=== PATIENT | female | born 1995 | race Caucasian/White ===

== ENCOUNTER 2017-08-09 22:58 | Emergency (ER) | payer BC, OTHER ==
[2017-08-10] MEDS ORDERED: Metoclopramide IV* 5 MG/ML 2 ML VIAL IV ONE (01:09)
[2017-08-10] MEDS ORDERED: Morphine INJ* 10 MG/ML 1 ML CARPUJECT IV ONE (01:09)
[2017-08-10] MEDS ORDERED: NS 0.9% 1000 ML* 1,000 ML IV ONE (01:09)
[2017-08-10 01:40] LABS: Hematocrit 37 % (35-47); Hemoglobin 12.5 g/dl (12.0-16.0); Mean Corpuscular HGB Conc 34 g/dl (31-36); Mean Corpuscular Hemoglobin 29 pg (27-31); Mean Corpuscular Volume 84 fL (80-97); Mean Platelet Volume 9 um3 (7.4-10.4); Platelet Count 168 10^3/ul (150-450); Red Blood Count 4.37 10^6/ul (4.0-5.4); Red Cell Distribution Width 14 % (10.5-15); White Blood Count 10.6 10^3/ul (3.5-10.8)
[2017-08-10 01:48] LABS: INR 1.01 (0.77-1.02)
[2017-08-10 01:59] LABS: EGFR Non-African American 100.1 (>60)
[2017-08-10] MEDS ORDERED: Iohexol 300* (CONTRAST) 10 ML SDV IV ONE (02:03)
[2017-08-10 02:14] LABS: ABS Basophils 0 10^3/ul (0-0.2); ABS Eosinophils 0 10^3/ul (0-0.6); ABS Lymphocytes 8.1 10^3/ul (1.0-4.8); ABS Monocytes 0.7 10^3/ul (0-0.8); ABS Neutrophils 1.7 10^3/ul (1.5-7.7)
[2017-08-10 02:15] LABS: ABS Nucleated RBC 0 10^3/ul; Eosinophil % 0.1 % (0-6); Lymphocyte % 76.3 % (25-47); Nucleated Red Blood Cells % 0.3
[2017-08-10 03:11] LABS: Urine Appearance Clear; Urine Blood Negative (Negative); Urine Color Yellow; Urine Ketones Negative (Negative); Urine Protein Negative (Negative); Urine Urobilinogen Positive (Negative)
[2017-08-10] MEDS ORDERED: Bisacodyl SUPP* 10 MG SUPP PR ONE (03:30)
[2017-08-10] MEDS ORDERED: Magnesium CITRATE* 300 ML BTL PO ONE (03:30)
--- NOTE | 2017-08-10 03:54 | ED ---
Gallito Quiñones Thomas, scribed for Elyssa Dominguez MD on 08/10/17 at 0315 . Abdominal Pain/Female - HPI Summary HPI Summary: The patient is a 22 year old female presenting with intermittent left-sided abdominal pain for the last two days. Her last BM was one day ago. She was recently diagnosed with mononucleosis for previous symptoms of body aches, fevers, and chills. She denies cough and sore throat. She has not been playing sports since her mononucleosis diagnosis. - History of Current Complaint Chief Complaint: EDAbdPain Stated Complaint: ABD PAIN Time Seen by Provider: 08/10/17 01:01 Hx Obtained From: Patient Onset/Duration: Lasting Hours, Still Present Severity Currently: Moderate Pain Intensity: 4 Pain Scale Used: 0-10 Numeric Location: Other - left-sided Alleviating Factor(s): Nothing Associated Signs and Symptoms: Negative: Cough, Other: - sore throat Allergies/Adverse Reactions: Allergies Allergy/AdvReac Type Severity Reaction Status Date / Time No Known Allergies Allergy Verified 06/29/16 11:12 PMH/Surg Hx/FS Hx/Imm Hx Endocrine/Hematology History: Denies: Hx Diabetes Cardiovascular History: Denies: Hx Hypertension, Hx Pacemaker/ICD History: Denies: Hx Renal Disease Sensory History: Denies: Hx Hearing Aid Psychiatric History: Denies: Hx Panic Disorder - Surgical History Surgery Procedure, Year, and Place: 11/04 Rt [facility] - [facility] - [facility] Infectious Disease History: No Infectious Disease History: Denies: Traveled Outside the [place] in Last 30 Days - Family History Known Family History: Negative: Other - patient denies relevant FHx - Social History Alcohol Use: None Substance Use Type: Reports: None Smoking Status (MU): Never Smoked Tobacco Review of Systems Negative: Sore Throat Negative: Cough Positive: Abdominal Pain All Other Systems Reviewed And Are Negative: Yes Physical Exam - Summary Physical Exam Summary: VITAL SIGNS: Reviewed. GENERAL: Patient is a well-developed and nourished female who is lying comfortable in the stretcher. Patient is not in any acute respiratory distress. HEAD AND FACE: No signs of trauma. No ecchymosis, hematomas or skull depressions. No sinus tenderness. EYES: PERRLA, EOMI x 2, No injected conjunctiva, no nystagmus. EARS: Hearing grossly intact. Ear canals and tympanic membranes are within normal limits. MOUTH: Oropharynx within normal limits. NECK: Supple, trachea is midline, no adenopathy, no JVD, no carotid bruit, no c- spine tenderness, neck with full ROM. CHEST: Symmetric, no tenderness at palpation LUNGS: Clear to auscultation bilaterally. No wheezing or crackles. CVS: Regular rate and rhythm, S1 and S2 present, no murmurs or gallops appreciated. ABDOMEN: Soft. She has LUQ tenderness. No signs of distention. No rebound no guarding, and no masses palpated. Bowel sounds are normal. EXTREMITIES: FROM in all major joints, no edema, no cyanosis or clubbing. NEURO: Alert and oriented x 3. No acute neurological deficits. Speech is normal and follows commands. SKIN: Dry and warm Triage Information Reviewed: Yes Vital Signs On Initial Exam: Initial Vitals Temp Pulse Resp BP Pulse Ox 99.7 F 106 20 135/87 100 08/09/17 23:04 08/09/17 23:04 08/09/17 23:04 08/09/17 23:04 08/09/17 23:04 Vital Signs Reviewed: Yes Diagnostics - Vital Signs Vital Signs Temp Pulse Resp BP Pulse Ox 08/10/17 01:36 16 08/09/17 23:04 99.7 F 106 20 135/87 100 - Laboratory Lab Results: Lab Results 08/10/17 08/10/17 08/10/17 Range/Units 01:25 01:25 01:25 WBC 10.6 (3.5-10.8) 10^3/ul RBC 4.37 (4.0-5.4) 10^6/ul Hgb 12.5 (12.0-16.0) g/dl Hct 37 (35-47) % MCV 84 (80-97) fL MCH 29 (27-31) pg MCHC 34 (31-36) g/dl RDW 14 (10.5-15) % Plt Count 168 (150-450) 10^3/ul MPV 9 (7.4-10.4) um3 Neut % (Auto) 16.2 L (38-83) % Lymph % (Auto) 76.3 H (25-47) % [place] % (Auto) 7.0 (0-7) % Eos % (Auto) 0.1 (0-6) % Baso % (Auto) 0.4 (0-2) % Absolute Neuts (auto) 1.7 (1.5-7.7) 10^3/ul Absolute Lymphs (auto) 8.1 H (1.0-4.8) 10^3/ul Absolute Monos (auto) 0.7 (0-0.8) 10^3/ul Absolute Eos (auto) 0 (0-0.6) 10^3/ul Absolute Basos (auto) 0 (0-0.2) 10^3/ul Absolute Nucleated RBC 0 10^3/ul Nucleated RBC % 0.3 Hem Pathologist Commnt Pending INR (Anticoag Therapy) 1.01 (0.77-1.02) APTT 30.4 (26.0-36.3) seconds Sodium 136 (133-145) mmol/L Potassium 3.9 (3.5-5.0) mmol/L Chloride 103 (101-111) mmol/L Carbon Dioxide 28 (22-32) mmol/L Anion Gap 5 (2-11) mmol/L BUN 16 (6-24) mg/dL Creatinine 0.74 (0.51-0.95) mg/dL Est GFR ( Amer) 128.7 (>60) Est GFR (Non-Af Amer) 100.1 (>60) BUN/Creatinine Ratio 21.6 H (8-20) Glucose 99 (70-100) mg/dL Calcium 9.3 (8.6-10.3) mg/dL Magnesium 2.2 (1.9-2.7) mg/dL Total Bilirubin 0.60 (0.2-1.0) mg/dL AST 203 H (13-39) U/L ALT 205 H (7-52) U/L Alkaline Phosphatase 188 H (34-104) U/L Total Protein 7.5 (6.4-8.9) g/dL Albumin 3.9 (3.2-5.2) g/dL Globulin 3.6 (2-4) g/dL Albumin/Globulin Ratio 1.1 (1-3) Lipase 20 (11.0-82.0) U/L Beta HCG, Quant < 0.60 mIU/mL Result Diagrams: 08/10/17 01:25 08/10/17 01:25 Lab Statement: Any lab studies that have been ordered have been reviewed, and results considered in the medical decision making process. - CT CT Abd/Pel CT Interpretation: No Acute Changes - Mild nonspecific splenomegaly most likely associated with mononucleosis infection. No evidence of splenic rupture. Mild hepatomegaly. Constipation. Small amount of dependent pelvic fluid may be physiologic or due to infection. Dr. Dominguez has reviewed this report. CT Interpretation Completed By: Radiologist Re-Evaluation - Re-Evaluation First Eval Re-Evaluation Time: 03:36 Comment: Results discussed. Patient will be discharged. Abdominal Pain Fem Course/Dx - Course Course Of Treatment: The patient is a 22 year old female presenting with intermittent left-sided abdominal pain for the last two days. Her last BM was one day ago. She was recently diagnosed with mononucleosis for previous symptoms of body aches, fevers, and chills. CT Abd/Pel shows Mild nonspecific splenomegaly most likely associated with mononucleosis infection. No evidence of splenic rupture. Mild hepatomegaly. Constipation. Small amount of dependent pelvic fluid may be physiologic or due to infection. The patient is diagnosed with constipation, splenomegaly, and mononucleosis. She will follow up with primary care in three days. - Diagnoses Provider Diagnoses: Splenomegaly, Mononucleosis, Constipation Discharge - Sign-Out/Discharge Documenting (check all that apply): Discharge - Discharge Plan Condition: Stable Disposition: HOME Prescriptions: Oxycodone HCl 5 mg PO TID PRN #14 tablet MDD 3 PRN Reason: Pain oxyCODONE/Acetamin 5/325 MG* [Percocet 5/325 TAB*] 1 tab PO Q6H PRN #14 tab MDD 4 PRN Reason: Pain Patient Education Materials: Constipation (ED), Mononucleosis (ED) Referrals: Lucia Noble MD [Primary Care Provider] - 3 Days Additional Instructions: Follow up at [facility] in three days. Return to the emergency department for any new or worsening symptoms. The documentation as recorded by the Gallito johnson Thomas accurately reflects the service I personally performed and the decisions made by Alberto dukes Abdul, MD.
[2017-08-10 04:13] VITALS: BP 119/80
--- NOTE | 2017-08-10 08:02 | RAD ---
CLINICAL HISTORY: Left upper abdominal pain after recent infectious mononucleosis diagnosis COMPARISON: None TECHNIQUE: Contrast enhanced CT examination of the abdomen and pelvis from the lung bases through the initial tuberosities. The patient received 79 mL Omnipaque 300 intravenously prior to imaging.The patient received oral contrast as well prior to imaging. FINDINGS: VISUALIZED LUNG BASES: The visualized lung bases are grossly clear. There is no pleural effusion. ABDOMEN AND PELVIS: The homogenously attenuating spleen measures approximately 11.8 x 5.5 cm in the axial plane and up to 13.7 cm in the cephalocaudal dimension. There is no evidence of fracture or acute bleed. The liver, pancreas and adrenal glands are grossly normal in appearance. The gallbladder is normal. The kidneys are normal in appearance without focal mass, calcification or signs of hydronephrosis. The small and large bowel are not distended. The patient's normal appendix is identified in the right lower quadrant with gas and stool in the lumen measuring 5 mm in diameter. There is no gross retroperitoneal or mesenteric lymphadenopathy. The pelvic viscera is normal in appearance. Trace free fluid in the cul-de-sac is likely physiologic in a woman of this age. The abdominal aorta and iliac arteries are normal in course and diameter. There are no sinister bone lesions. IMPRESSION: Mild splenomegaly without signs of rupture or acute hemorrhage in this otherwise normal CT of the abdomen and pelvis.
== END 2017-08-10 04:08 | disposition home or self-care (01) ==
LOC: ED 22:58
DX: R16.1 Splenomegaly, not elsewhere classified (principal); B27.90 Infectious mononucleosis, unspecified without complication; K59.00 Constipation, unspecified; R10.9 Unspecified abdominal pain
CPT/HCPCS: 36415; 74177; 80053; 81003; 83690; 83735; 84702; 85025; 85060; 85610; 85730; 96374; 96375; 99284; A9270-GY; J2270; J2765; Q9967

== ENCOUNTER 2019-02-26 10:25 | Day surgery (SDC) | payer BC ==
--- NOTE | 2019-02-26 08:55 | HP ---
PREOPERATIVE HISTORY AND PHYSICAL: DATE OF ADMISSION/SURGERY: 02/26/19 ATTENDING SURGEON: Dr. Marcel Colon * (DICTATED BY KAREN RUIZ) PROCEDURE: Left knee arthroscopy with partial meniscectomy, possible synovectomy. CHIEF COMPLAINT: Left knee pain. HISTORY OF PRESENT ILLNESS: Mirian is a 23-year-old female who presented to the clinic for left knee pain for about 2 weeks. She states she was doing gymnastics and landed awkwardly on the mat. It is a medial based pain. She rates it a 6 out of 10 at its worst. She had a lot of swelling after the injury. She denies numbness, tingling, fevers, chills, chest pain, shortness of breath and is doing well otherwise. She has failed conservative measures, therefore agreed to undergo a left knee arthroscopy with partial meniscectomy, possible synovectomy with Dr. Colon on 02/26/19. PAST MEDICAL HISTORY: No active problems at present. PAST SURGICAL HISTORY: Right elbow x2. Patient denies prior complications with anesthesia. MEDICATIONS: 1. Multivitamin. 2. Junel FE 1.5 mg one by mouth daily. ALLERGIES: No known drug allergies. FAMILY HISTORY: Positive for hypertension. SOCIAL HISTORY: She lives with 2 roommates. She works as a student. She denies tobacco use. She reports occasional alcohol consumption. She exercises regularly. She is right hand dominant. REVIEW OF SYSTEMS: A 14-point review of systems was reviewed with the patient. Positive for current complaint, otherwise negative. PHYSICAL EXAMINATION GENERAL: A 23-year-old well-developed, well-nourished female, in no acute distress. VITAL SIGNS: Height 65.5, weight 138, pulse 82, blood pressure 120/64, temperature 99.1, BMI 22.6. HEENT: Normocephalic, atraumatic. PERRL. Throat clear. NECK: Supple. PULMONARY: Lungs are clear to auscultation bilaterally. No wheezing, rhonchi, or rales. CARDIO: Regular rate and rhythm. S1, S2. No murmurs, gallops, or rubs. No edema. ABDOMEN: Positive bowel sounds. Soft, nontender. NEURO: Alert and oriented x3. Cranial nerves grossly intact. MUSCULOSKELETAL: Left lower extremity. Skin is intact. No warmth or erythema. She has tenderness over the medial and lateral joint line. Positive Danii. Stable to varus and valgus stress. Some pain at 0 and 30 degrees with MCL testing that is mild. Stable [place]. Negative posterior drawer. Calf soft nontender. Range of motion 0 to 130. +5/5 strength to ankle dorsiflexion and plantarflexion. +2 DP pulse. Sensation intact to light touch distally. Mild effusion. DIAGNOSTIC STUDIES/LAB DATA: MRI revealed increased fat pad. No obvious meniscus tear. IMPRESSION: Left fat pad impingement and synovitis. PLAN: Patient scheduled to undergo a left knee arthroscopy with partial meniscectomy, possible synovectomy with Dr. Colon on 02/26/19. She will followup 10 to 14 days postop. [place] will be used for postop pain management. KAREN RUIZ [id number]/[facility] #: [id number] SUN[place]
[~2019-02-26 10:25] MED LIST: Buffered Lidocaine 1% SYRIN* 1 ML/SYRINGE INTRADERM ONE; Lactated Ringers 1000 ML Bag* 1,000 ML IV SCH
[2019-02-26] MEDS ORDERED: ceFAZolin 2 GM PREMIX in ORs 2 GM/50 ML BAG ONE (10:56)
[2019-02-26] MEDS ORDERED: fentaNYL* 50 MCG/ML 2 ML VIAL (100 MCG VIAL) ONE (11:09)
[2019-02-26] MEDS ORDERED: Midazolam* 1 MG/ML 2 ML VIAL (2 MG) ONE (11:09)
[2019-02-26] MEDS ORDERED: Propofol* 10 MG/ML 20 ML BTL ONE (11:10)
[2019-02-26] MEDS ORDERED: Lidocaine 2% PF * 5 ML VIAL ONE ×2 (11:11→11:12)
[2019-02-26] MEDS ORDERED: Ropivacaine 0.2% * 2 MG/ML VIAL ONE (11:54)
[2019-02-26] MEDS ORDERED: Lidocaine 1% w EPI 1:200,000* SDV 30 ML VIAL ONE (11:54)
[2019-02-26] MEDS ORDERED: fentaNYL* 50 MCG/ML 2 ML VIAL (100 MCG VIAL) IV PRN (12:29)
[2019-02-26] MEDS ORDERED: Naloxone* 0.4 MG/ML 1 ML VIAL IV PRN (12:29)
[2019-02-26] MEDS ORDERED: DiMENhydriNATE IV* 50 MG/ML VIAL IV PUSH PRN (12:29)
[2019-02-26] MEDS ORDERED: oxyCODONE/Acetamin 5/325 MG* TAB PO PRN (12:29)
[2019-02-26 13:54] VITALS: BP 114/64
--- NOTE | 2019-02-27 01:32 | OP ---
CC: PCP, Lucia Noble MD * DATE OF OPERATION: 02/26/19 [facility] DATE OF : 89 SURGEON: Marcel Colon MD. ONLINE MERCHANDISING SPECIALIST: Not available. ANESTHESIA: General anesthesia endotracheal intubation. PRE-OP DIAGNOSES: Left knee possible medial meniscus tear and pain. POST-OP DIAGNOSES: Left knee medial plica and partial lateral meniscus tearing at the root. OPERATIVE PROCEDURE: Left knee arthroscopy with partial lateral meniscectomy and removal of plica. COMPLICATIONS: None. ESTIMATED BLOOD LOSS: Minimal. INDICATIONS: Mirian is a 23-year-old female who presents with persistent knee pain medially based. She has failed physical therapy, antiinflammatories, ice and heat, and she has elected to proceed with surgical treatment. The risks and benefits were discussed at length and include, but are not limited to bleeding, infection, damage to nerves; vessels; surrounding structures, wound nonhealing, persistent pain, need for further surgery, scarring, stiffness, incomplete relief of symptoms, risks of refracture, and risks of anesthesia. DESCRIPTION OF PROCEDURE: The patient was greeted in the preoperative area by the attending surgeon. The correct extremity was marked and consent was confirmed. The patient was brought back to the operating suite and she was placed in the supine position on the operating table and underwent general anesthesia and endotracheal intubation, after which she was appropriately positioned on the bed. The lateral post was positioned. An unsterile tourniquet was placed high on the proximal thigh. The left leg was then prepped and draped in the usual sterile fashion beginning with chlorhexidine soap, scrub, and alcohol wipe and a final prep with ChloraPrep. After appropriate surgical pause indicating correct side, site, procedure, and administration of antibiotics, the knee was intra-articularly injected with 1% lidocaine with epi. The lateral and anterior portals were made sharply with an 11 blade. The scope was introduced into the joint and it was examined. There was abundant synovitis that was present. The small ligamentum was then removed using a shaver. The patellofemoral compartment had grade 0 changes. The medial gutter was intact, but there was fraying of the cartilage along the very medial aspect and there was a large plica. This was debrided back using a shaver and electrocautery device. Once this was removed, a small chondroplasty was done in the medial femoral condyle. This was thought to be the area of pain. However, the medial compartment was examined. There were grade 0 to 1 changes of the weightbearing surface. The meniscus was probed and found to be completely intact. There was no evidence of tearing. The ACL and PCL were intact. The knee was placed in a figure- of-four position and the lateral compartment was examined. There were grade 0 changes of the lateral femoral condyle and lateral plateau. There was an unstable flap at the root of the meniscus and fraying of the bodies, which were debrided back using a shaver. Then, the medial collateral was examined again to make sure that there was no evidence of any kind of remaining unstable flap or very peripheral meniscus tear , but there was nothing evident. There was abundant synovitis that was removed and this was debrided back, and hemostasis was obtained using the electrocautery device. Final images were obtained. The knee was thoroughly lavaged and removed of any loose debris. The wound was copiously irrigated with sterile saline, and the portals were closed using 3-0 nylon in an interrupted fashion. Sterile dressings were applied as well as Cryo/Cuff and the wound was intra-articularly and superficially injected with 0.25% ropivacaine.. POSTOPERATIVE PLAN: She will be weightbearing as tolerated and range of motion as tolerated with crutches for 3 to 5 days. Discharged on pain medications. DVT prophylaxis was considered, but deferred due to no previous personal or family history. I will see the patient back in 10 to 14 days. [id number]/[facility] #: [id number] SUNSHINE
== END 2019-02-26 13:50 | disposition home or self-care (01) ==
LOC: OREAST 10:25
PROVIDERS: ATTEND Orthopaedic Surgery
DX: S83.282A Other tear of lateral meniscus, current injury, left knee, initial encounter (principal); M67.52 Plica syndrome, left knee; X50.0XXA Overexertion from strenuous movement or load, initial encounter; Y93.43 Activity, gymnastics; Y92.39 Other specified sports and athletic area as the place of occurrence of the external cause
CPT/HCPCS: 81025; J0690; J2001; J2250; J2704; J2795; J3010